=== PATIENT | male | born 1995 | race Two or more races ===

== ENCOUNTER 2018-11-17 09:42 | Emergency (ER) | payer SELFPAY ==
[~2018-11-17] VITALS: Ht 162.6 cm; Wt 59.4 kg
[2018-11-17] MEDS ORDERED: LORAZEPAM 1 MG TABLET ONE (09:57)
[2018-11-17] MEDS ORDERED: LORAZEPAM 1 MG TABLET PO ONE (10:00)
--- NOTE | 2018-11-17 10:03 | NUR ---
patient BBRA C/O PT ANXIOUS AND PULLED OVER WHEN DRIVING TO HIS GIRLFRIEND'S HOUSE "HANDS TENSED UP" PER EMS REPORT. on room air, breathing evenly and unlabored. connected to the monitor and pulse ox. kept comfortable, will continue to monitor accordingly.
[2018-11-17 10:34] VITALS: BP 129/90
--- NOTE | 2018-11-17 11:01 | NUR ---
Patient discharged to home in stable condition. Written and verbal after care instructions given. Patient verbalizes understanding of instruction.
== END 2018-11-21 11:00 | disposition home or self-care (01) ==
LOC: ER 11-21 09:42
DX: F41.9 Anxiety disorder, unspecified (principal); R94.31 Abnormal electrocardiogram [ECG] [EKG]